=== PATIENT | female | born 1940 | race Caucasian/White ===

== ENCOUNTER → 2017-10-29 11:12 | Outpatient (CLI) | payer MEDICARE, BC, SELFPAY ==
--- NOTE | 2017-10-29 | DI.MG.S_ITS ---
BILATERAL DIGITAL SCREENING MAMMOGRAM 3D/2D WITH CAD: 10/29/2017 CLINICAL: Routine screening. Family history of breast cancer. Comparison is made to exams dated: 10/24/2016 mammogram, 10/13/2016 mammogram, and 10/03/2016 mammogram - [facility]. The tissue of both breasts is predominantly fatty. Current study was also evaluated with a Computer Aided Detection (CAD) system. There is a 1.1 cm oval low density mass with a macrolobulated margin in the right breast at 10 o'clock anterior depth. This is increased in size. No other significant masses, calcifications, or other findings are seen in either breast. IMPRESSION: INCOMPLETE: NEEDS ADDITIONAL IMAGING EVALUATION The 1.1 cm oval low density mass in the right breast is indeterminate. Mediolateral and spot compression views as well as additional views with possible ultrasound are recommended. This exam was interpreted at Station ID: [id number]. NOTE: For mammograms, a report in lay terms will be sent to the patient. Approximately 15% of breast malignancies will not be visualized mammographically. In the management of a palpable breast mass, a negative mammogram must not discourage biopsy of a clinically suspicious lesion. Electronically Signed By: James driver/delmi:10/29/2017 16:33:51 letter sent: Additional Imaging Needed ACR BI-RADS Category 0: Incomplete 3340F
== END ==
PROVIDERS: PCP Family Medicine; Visit Provider Family Medicine
DX: Z12.31 Encounter for screening mammogram for malignant neoplasm of breast (principal); Z80.3 Family history of malignant neoplasm of breast
CPT/HCPCS: 77063; 77067

== ENCOUNTER → 2017-11-14 14:25 | Outpatient (CLI) | payer MEDICARE, BC, SELFPAY ==
--- NOTE | 2017-11-14 | DI.MG.S_ITS ---
UNILATERAL RIGHT DIGITAL DIAGNOSTIC MAMMOGRAM 3D/2D WITH ADDITIONAL VIEWS: 11/14/2017 CLINICAL: Additional evaluation requested from prior study. Comparison is made to exams dated: 10/29/2017 mammogram, 10/24/2016 mammogram, and 10/13/2016 mammogram - [facility]. The tissue of the right breast is predominantly fatty. There is a 1.1 cm oval low density mass with a macrolobulated margin in the right breast at 10 o'clock anterior depth. This is seen in additional views. No other significant masses or calcifications are seen in the breast. IMPRESSION: INCOMPLETE: NEEDS ADDITIONAL IMAGING EVALUATION The 1.1 cm oval low density mass in the right breast is indeterminate. An ultrasound is recommended. This exam was interpreted at Station ID: [id number]. NOTE: For mammograms, a report in lay terms will be sent to the patient. Approximately 15% of breast malignancies will not be visualized mammographically. In the management of a palpable breast mass, a negative mammogram must not discourage biopsy of a clinically suspicious lesion. Electronically Signed By: Bridget Alcala M.D. lk/:11/14/2017 15:17:01 letter sent: Additional Imaging Needed ACR BI-RADS Category 0: Incomplete 3340F
--- NOTE | 2017-11-14 | DI.US.S_ITS ---
ULTRASOUND OF RIGHT BREAST: 11/14/2017 CLINICAL: Patient returns for additional imaging over a suspected mass in the right breast. Comparison is made to exams dated: 11/14/2017 mammogram, 10/29/2017 mammogram, 10/13/2016 ultrasound, and 10/13/2016 mammogram - [facility]. Color flow ultrasound of the right breast was performed on the areas of interest. Holloway scale images of the real-time examination were reviewed. There is a 1.2 cm x 0.5 cm x 0.5 cm irregular mass in the right breast at 10 o'clock anterior depth. This irregular mass is hypoechoic. There is an associated biopsy clip. IMPRESSION: PROBABLY BENIGN - FOLLOW-UP RECOMMENDED The 1.2 cm x 0.5 cm x 0.5 cm irregular mass in the right breast is at the site of a previous benign biopsy. This finding most likely represents a foreign body reaction to the biopsy clip placed in this location. However, as a precautionary measure, a followup mammogram and ultrasound in 6 months are recommended to demonstrate stability. This exam was interpreted at Station ID: [id number]. Electronically Signed By: Bridget nick/:11/14/2017 16:58:37 letter sent: Followup Recommended Ultrasound BI-RADS: 3 Probably benign
== END ==
PROVIDERS: PCP Family Medicine; Visit Provider Family Medicine
DX: R92.8 Other abnormal and inconclusive findings on diagnostic imaging of breast (principal); N63.11 Unspecified lump in the right breast, upper outer quadrant
CPT/HCPCS: 76642; 77065; G0279

== ENCOUNTER → 2018-05-30 13:02 | Outpatient (CLI) | payer MEDICARE, BC, SELFPAY ==
--- NOTE | 2018-05-30 | DI.US.S_ITS ---
LIMITED ULTRASOUND OF RIGHT BREAST: 05/30/2018 CLINICAL: 6 month follow-up on previously biopsied area of the right breast (benign). Comparison is made to exams dated: 05/30/2018 mammogram, 11/14/2017 ultrasound, 11/14/2017 mammogram, 10/29/2017 mammogram, 10/24/2016 mammogram, and 10/24/2016 ultrasound biopsy - [facility]. Ultrasound of the right breast upper outer quadrant was performed. There is a benign 0.7 cm x 0.3 cm x 0.5 cm wider than tall oval mass in the right breast at 10 o'clock middle depth with the long axis parallel to the skin. This abnormality is decreased in size. There is an associated biopsy clip. Color flow imaging demonstrates that there is no increase in vascularity. IMPRESSION: BENIGN There is no sonographic evidence of malignancy. The 0.7 cm x 0.3 cm x 0.5 cm wider than tall oval mass in the right breast is benign. Return to annual mammogram screening schedule is recommended. This exam was interpreted at Station ID: [id number]. Electronically Signed By: Suzi veronica/delmi:05/31/2018 01:51:08 letter sent: Normal Exam Ultrasound BI-RADS: 2 Benign
--- NOTE | 2018-05-30 | DI.MG.S_ITS ---
UNILATERAL RIGHT DIGITAL DIAGNOSTIC MAMMOGRAM 3D/2D SHORT-TERM FOLLOW-UP: 05/30/2018 CLINICAL: Right breast mass Patient returns for a 6 month follow up of the right breast. Post biopsy. Comparison is made to exams dated: 11/14/2017 ultrasound, 11/14/2017 mammogram, and 10/29/2017 mammogram - [facility]. The tissue of right breast is predominantly fatty. There is a 1 cm irregular, lobulated mass in the right breast at 10 o'clock anterior depth. This is not significantly changed. There is a biopsy clip associated with the mass. No other significant masses or calcifications are seen in the breast. IMPRESSION: INCOMPLETE: NEEDS ADDITIONAL IMAGING EVALUATION The 1 cm irregular right breast mass, at the site of previous benign biopsy, is stable by mammogram. An ultrasound is recommended to confirm sonographic stability which was performed immediately following this study. This exam was interpreted at Station ID: [id number]. NOTE: For mammograms, a report in lay terms will be sent to the patient. Approximately 15% of breast malignancies will not be visualized mammographically. In the management of a palpable breast mass, a negative mammogram must not discourage biopsy of a clinically suspicious lesion. Electronically Signed By: Suzi veronica/:05/31/2018 01:44:19 ACR BI-RADS Category 0: Incomplete 3340F
== END ==
PROVIDERS: PCP Family Medicine; Visit Provider Family Medicine
DX: R92.8 Other abnormal and inconclusive findings on diagnostic imaging of breast (principal); N63.11 Unspecified lump in the right breast, upper outer quadrant
CPT/HCPCS: 76642; 77065; G0279

== ENCOUNTER → 2019-06-04 14:37 | Outpatient (CLI) | payer MEDICARE, BC, SELFPAY ==
--- NOTE | 2019-06-04 | DI.MG.S_ITS ---
BILATERAL DIGITAL SCREENING MAMMOGRAM 3D/2D WITH CAD: 06/04/2019 CLINICAL: Routine screening. Family history of breast cancer. Comparison is made to exams dated: 10/29/2017 mammogram, 10/03/2016 mammogram, and 09/21/2015 mammogram - [facility]. The tissue of both breasts is predominantly fatty. Current study was also evaluated with a Computer Aided Detection (CAD) system. No significant masses, calcifications, or other findings are seen in either breast. There has been no significant interval change. IMPRESSION: NEGATIVE There is no mammographic evidence of malignancy. A 1 year screening mammogram is recommended. This exam was interpreted at Station ID: [id number]. NOTE: For mammograms, a report in lay terms will be sent to the patient. Approximately 15% of breast malignancies will not be visualized mammographically. In the management of a palpable breast mass, a negative mammogram must not discourage biopsy of a clinically suspicious lesion. Electronically Signed By: Bridget nick/delmi:06/04/2019 15:39:49 letter sent: Normal Exam ACR BI-RADS Category 1: Negative 3341F
== END ==
PROVIDERS: PCP Family Medicine; Referring Provider Family Medicine; Visit Provider Family Medicine
DX: Z12.31 Encounter for screening mammogram for malignant neoplasm of breast (principal); Z80.3 Family history of malignant neoplasm of breast
CPT/HCPCS: 77063; 77067

== ENCOUNTER → 2020-11-25 15:18 | Outpatient (CLI) | payer MEDICARE, SELFPAY ==
--- NOTE | 2020-11-25 15:22 | DI.MG.S_ITS ---
BILATERAL DIGITAL SCREENING MAMMOGRAM 3D/2D WITH CAD: 11/25/2020 CLINICAL: Routine screening. Family history of breast cancer. Comparison is made to exams dated: 06/04/2019 mammogram, 05/30/2018 mammogram, 11/14/2017 mammogram, and 10/29/2017 mammogram - [facility]. The tissue of both breasts is predominantly fatty. Current study was also evaluated with a Computer Aided Detection (CAD) system. No significant masses, calcifications, or other findings are seen in either breast. There has been no significant interval change. IMPRESSION: NEGATIVE There is no mammographic evidence of malignancy. A 1 year screening mammogram is recommended. This exam was interpreted at Station ID: [id number]. NOTE: For mammograms, a report in lay terms will be sent to the patient. Approximately 15% of breast malignancies will not be visualized mammographically. In the management of a palpable breast mass, a negative mammogram must not discourage biopsy of a clinically suspicious lesion. Electronically Signed By: Aakash Merchant M.D., jr/delmi:11/25/2020 15:38:25 letter sent: Normal Exam ACR BI-RADS Category 1: Negative 3341F
== END ==
PROVIDERS: PCP Family Medicine; Referring Provider Family Medicine; Visit Provider Family Medicine
DX: Z12.31 Encounter for screening mammogram for malignant neoplasm of breast (principal); Z80.3 Family history of malignant neoplasm of breast
CPT/HCPCS: 77063; 77067

== ENCOUNTER 2021-06-14 09:31 | Emergency (ER) | payer MEDICARE, SELFPAY ==
[2021-06-14 09:35] VITALS: BP 175/80; PULSE 85; RESP 13; TEMP 36.4; O2SAT 98; BMI 25.4
[2021-06-14 09:37] VITALS: PULSE 91; O2SAT 98
[2021-06-14 09:39] VITALS: BP 175/80; PULSE 84; O2SAT 99
--- NOTE | 2021-06-14 09:42 | DI.RAD.S_ITS ---
PROCEDURE: XR KNEE LT 3V INDICATIONS: fall with knee pain TECHNIQUE: 3 views of the knee were acquired. COMPARISON: [facility], , KNEE 3V LEFT, 09/19/2006, 14:40. FINDINGS: Bones: No fractures or dislocations. No suspicious bony lesions. Mild joint space narrowing Soft tissues: Moderate joint effusion. No suspicious soft tissue calcifications. IMPRESSION: Moderate joint effusion without fracture or dislocation Approved by: Stephon Flores M.D. on 06/14/2021 at 9:31
--- NOTE | 2021-06-14 10:44 | ED.FALL ---
HPI - Fall General Chief Complaint: Fall Stated Complaint: Fall,knee and hand pain Time Seen by Provider: 06/14/21 10:35 Source: patient Mode of arrival: Wheelchair History of Present Illness HPI Narrative: Patient is a 80-year-old female who presents with left knee pain. She says that she was bringing supplies to a friend when her rubber shoe got stuck in the elevator and she fell forward. She caught herself with both wrists she did not hit her head she has no shortness of breath. She no wrist pain only knee pain. She was able to walk on it but it was really tender. She took some arinca for pain and is now feeling better. She was able to drive herself here. Related Data Allergies Allergy/AdvReac Type Severity Reaction Status Date / Time tetanus toxoid, adsorbed Allergy Mild Verified 06/14/21 09:39 aspirin AdvReac Unknown Verified 06/14/21 09:39 Review of Systems Review of Systems Narrative: GENERAL: Denies chills,fever HEENT: Denies throat pain RESPIRATORY: Denies dyspnea, cough, wheezing CARDIOVASCULAR: Denies chest pain, palpitations GASTROINTESTINAL: Denies nausea, vomiting MUSCULOSKELETAL: See HPI SKIN: No rash, no laceration, no pruritus NEUROLOGIC: Denies weakness, dizziness, headache, numbness 8 point review of systems is negative except for those stated above and HPI Patient History Surgical History History of cataract removal with insertion of prosthetic lens Status post hysterectomy Social History Smoking Status: Unknown if ever smoked Smoking Status: Unknown if ever smoked alcohol intake frequency: holidays/special occasions only Substance Use Type: does not use Exam Initial Vital Signs Initial Vital Signs: Vital Signs Temperature 97.6 F 06/14/21 09:35 Pulse Rate 85 06/14/21 09:35 Respiratory Rate 13 06/14/21 09:35 Blood Pressure 175/80 H 06/14/21 09:35 Pulse Oximetry 98 06/14/21 09:35 GENERAL: Well-appearing, well-nourished and in no acute distress. CARDIOVASCULAR: peripheral pulses in tact, cap refill <2 sec RESPIRATORY: No respiratory distress, speaks in full sentences without difficulty EXTREMITIES: Normal range of motion, no clubbing or edema. Neurovascularly intact Left lower extremity mild knee swelling able to flex and extend no erythema no hip pain with internal external rotation distal pedal pulse intact. NEUROLOGICAL: Cranial nerves II through XII grossly intact. Normal gait and speech. SKIN: Warm, dry, no petechiae, no rashes or lesions. Course Orders Ordered: ED Orders 06/14/21 09:42 XR knee LT 3V Stat Vital Signs Vital signs: Vital Signs - 8 hr 06/14/21 11:12 06/14/21 11:13 Pulse Rate 68 71 Blood Pressure 159/69 H Pulse Oximetry 97 99 [facility] - Fall Imaging Data Extremity x-ray #1: Radiologist's Impression: PROCEDURE:? XR KNEE LT 3V ? INDICATIONS:? fall with knee pain ? TECHNIQUE:? 3 views of the knee were acquired.? ? COMPARISON:? [facility], , KNEE 3V LEFT, 09/19/2006, 14:40. ? FINDINGS:? ? Bones:? No fractures or dislocations.? No suspicious bony lesions.? Mild joint space narrowing ? Soft tissues:? Moderate joint effusion.? No suspicious soft tissue calcifications.? ? ? IMPRESSION:? Moderate joint effusion without fracture or dislocation ? ? ? Approved by: Stephon Flores M.D. on 06/14/2021 at 9:31? [facility] Narrative Medical decision making narrative: At this time patient x-ray is negative she does have some mild edema. Able to flex and extend with good distal pulse. Discharge Plan Departure Patient Disposition: Home Clinical Impression: Left knee sprain Instructions: DI for Knee Sprain Activity Restrictions/Additional Instructions: *You have been diagnosed with left knee sprain *What to do: Elevate and ice 20-30 minutes at a time. Recommend wearing some sort of knee brace well active. If still having pain and swelling in 7-10 days may require repeat x-ray or possible outpatient MRI *Continue to take medications as directed Tylenol 650 mg every 4-6 hours if needed for [id number] pain *Follow up with your primary care provider in 2-3 days or call [phone] *Return to ER if you should have increasing pain swelling inability to ambulate or any new, worsening or concerning symptoms Referrals: Arun Aguilar MD [Primary Care Provider] -
[2021-06-14 11:12] VITALS: PULSE 68; O2SAT 97
[2021-06-14 11:13] VITALS: BP 159/69; PULSE 71; O2SAT 99
--- NOTE | 2021-06-14 11:16 | PC.NURSE ---
Knee immobilizer placed on leg lower extremity, patient educated on use/wear of immobilizer.
== END 2021-06-14 11:27 | disposition home or self-care (01) ==
PROVIDERS: Emergency Provider Emergency Medicine; PCP Family Medicine
DX: S83.92XA Sprain of unspecified site of left knee, initial encounter (principal); W01.0XXA Fall on same level from slipping, tripping and stumbling without subsequent striking against object, initial encounter
CPT/HCPCS: 73562; 99283

== ENCOUNTER → 2021-12-06 12:45 | Outpatient (CLI) | payer MEDICARE, SELFPAY ==
--- NOTE | 2021-12-06 | DI.MG.S_ITS ---
BILATERAL DIGITAL SCREENING MAMMOGRAM 3D/2D WITH CAD: 12/06/2021 CLINICAL: Routine screening. Family history of breast cancer. Comparison is made to exams dated: 11/25/2020 mammogram, 06/04/2019 mammogram, and 10/29/2017 mammogram - [facility]. Both breasts are almost entirely fatty (category a/<25% glandular tissue). Current study was also evaluated with a Computer Aided Detection (CAD) system. There are benign calcifications in both breasts. No significant masses, calcifications, or other findings are seen in either breast. There has been no significant interval change. IMPRESSION: BENIGN There is no mammographic evidence of malignancy. A 1 year screening mammogram is recommended. Based on the Tyrer Cuzick model (a risk assessment model) the patient's lifetime risk is 0.7% and her 10 year risk is 0.0%. According to the ACR, ACS, and NCCN guidelines, an annual breast MRI exam along with mammogram is recommended if the patient's lifetime risk is 20% or greater. This exam was interpreted at Station ID: [id number]. NOTE: For mammograms, a report in lay terms will be sent to the patient. Approximately 15% of breast malignancies will not be visualized mammographically. In the management of a palpable breast mass, a negative mammogram must not discourage biopsy of a clinically suspicious lesion. Electronically Signed By: Suzi veronica/delmi:12/06/2021 15:50:09 letter sent: Normal Exam ACR BI-RADS Category 2: Benign Finding(s) 3342F
== END ==
PROVIDERS: PCP Family Medicine; Referring Provider Family Medicine; Visit Provider Family Medicine
DX: Z12.31 Encounter for screening mammogram for malignant neoplasm of breast (principal); Z80.3 Family history of malignant neoplasm of breast
CPT/HCPCS: 77063; 77067

== ENCOUNTER → 2022-04-21 14:06 | Outpatient (CLI) | payer MEDICARE, SELFPAY ==
[2022-04-21 15:52] LABS: Free T4, Direct Thyroxine 1.35 ng/dL (0.78-2.19)
[2022-04-21 16:05] LABS: Thyroid Stimulating Hormone 2.19 uIU/mL (0.47-4.68)
== END ==
PROVIDERS: PCP Family Medicine; Referring Provider Family Medicine; Visit Provider Family Medicine
DX: E03.9 Hypothyroidism, unspecified (principal)
CPT/HCPCS: 36415; 84439; 84443; 84481

== ENCOUNTER → 2022-11-21 09:33 | Outpatient (CLI) | payer MEDICARE, SELFPAY ==
[2022-11-21 10:20] LABS: Add Manual Diff / Slide Review NO; Basophils Absolute Auto 100 /uL (0-100); Basophils Percent Auto 2.4 % (0-2); Eosinophils Absolute Auto 400 /uL (0-450); Hematocrit 39.5 % (36-46); Hemoglobin 13.3 g/dL (12.0-16.0); Lymphocytes Absolute Auto 1700 /uL (1100-4500); Lymphocytes Percent Auto 28.2 % (25-40); Mean Corpuscular HGB Conc 33.8 % (30-36); Mean Corpuscular Hemoglobin 31.3 PG (26-34); Mean Corpuscular Volume 92.6 fL (80-100); Monocytes Absolute Auto 700 /uL (0-900); Monocytes Percent Auto 11.7 % (3-14); Neutrophils Absolute Auto 3000 /uL (1500-7000); Neutrophils Percent Auto 51.7 % (50-75); Platelet Count 230 X10^3/uL (150-400); Red Blood Cell Count 4.26 X10^6/uL (4.0-5.2); White Blood Cell Count 5.9 X10^3/uL (4.5-11.0)
[2022-11-21 10:35] LABS: Alanine Aminotransferase 20 IU/L (<35); Albumin 4.1 g/dL (3.5-5.0); Albumin Globulin Ratio 1.4 (1.0-2.8); Alkaline Phosphatase 63 U/L (38-126); Aspartate Aminotransferase 25 IU/L (14-36); BUN Creatinine Ratio 24.6 (6-22); Bilirubin Total 0.6 mg/dL (0.2-1.3); Blood Urea Nitrogen 28 mg/dL (7-17); Calcium 9.1 mg/dL (8.4-10.2); Carbon Dioxide 26 mmol/L (22-32); Chloride 105 mmol/L (98-107); Cholesterol 193 mg/dL (140-199); Estimated Glomerular Filt Rate 48 mL/min (>60); Glucose 96 mg/dL (80-110); HDL Cholesterol 32 mg/dL (40-60); HEMOLYSIS < 15 (0-50); LDL Cholesterol Calculated 118 mg/dL (<100); Potassium 4.6 mmol/L (3.4-5.1); Sodium 137 mmol/L (137-145); Total Protein 7.1 g/dL (6.3-8.2); Triglycerides 214 mg/dL (35-150)
[2022-11-21 11:16] LABS: TSH w/ Reflex to FT4 1.95 uIU/mL (0.47-4.68)
== END ==
PROVIDERS: PCP Family Medicine; Referring Provider Family Medicine; Visit Provider Family Medicine
DX: Z00.00 Encounter for general adult medical examination without abnormal findings (principal); E03.9 Hypothyroidism, unspecified; E78.2 Mixed hyperlipidemia
CPT/HCPCS: 36415; 80053; 80061; 84443; 85025

== ENCOUNTER → 2022-12-12 10:42 | Outpatient (CLI) | payer MEDICARE, SELFPAY ==
[2022-12-12 12:18] LABS: Alanine Aminotransferase 22 IU/L (<35); Albumin 4.4 g/dL (3.5-5.0); Albumin Globulin Ratio 1.6 (1.0-2.8); Alkaline Phosphatase 58 U/L (38-126); Aspartate Aminotransferase 26 IU/L (14-36); BUN Creatinine Ratio 23.8 (6-22); Bilirubin Total 0.6 mg/dL (0.2-1.3); Blood Urea Nitrogen 29 mg/dL (7-17); Calcium 9.2 mg/dL (8.4-10.2); Carbon Dioxide 26 mmol/L (22-32); Chloride 103 mmol/L (98-107); Estimated Glomerular Filt Rate 44 mL/min (>60); Globulin 2.7 g/dL (1.7-4.1); Glucose 85 mg/dL (80-110); HEMOLYSIS < 15 (0-50); Potassium 4.3 mmol/L (3.4-5.1); Sodium 138 mmol/L (137-145); Total Protein 7.1 g/dL (6.3-8.2)
== END ==
PROVIDERS: PCP Family Medicine; Referring Provider Family Medicine; Visit Provider Family Medicine
DX: E03.9 Hypothyroidism, unspecified (principal); E78.5 Hyperlipidemia, unspecified
CPT/HCPCS: 36415; 80053

== ENCOUNTER 2023-08-13 13:31 | Emergency (ER) | payer MEDICARE, SELFPAY ==
[2023-08-13] VITALS (15 sets, daily range): BP systolic 147–184; BP diastolic 67–93; PULSE 54–73; RESP 14–27; TEMP 37; O2SAT 96–100; BMI 25.4
--- NOTE | 2023-08-13 14:02 | ED.CHESTPAIN ---
HPI - Chest Pain General Chief Complaint: Chest Pain Stated Complaint: Chest Pains, sent by [facility] Time Seen by Provider: 08/13/23 14:02 Source: patient Mode of arrival: Ambulatory Limitations: no limitations History of Present Illness HPI narrative: 82-year-old woman with a history of hypothyroidism, distant history of cervical cancer, asthma presents with 4 days of intermittent chest pain she describes as glass grinding in the middle of her chest with deep breathing. She returned from [place] on July 29 with complaints of mild upper respiratory symptoms at that time. Cough has resolved. When she has the episodes of chest pain she does not report dizziness, diaphoresis or dyspnea. She has had no lower extremity edema. She has no prior cardiac history. Related Data Home Medications Medication Instructions Recorded Confirmed ascorbic acid (vitamin C) 1,000 mg 1 g PO DAILY 11/02/22 11/02/22 capsule cranberry extract 650 mg capsule 650 mg PO DAILY 11/02/22 11/02/22 (Theracran) grape seed extract 50 mg capsule 50 mg PO ONCE 11/02/22 11/02/22 magnesium 200 mg tablet 400 mg PO DAILY 11/02/22 11/02/22 omega-3 fatty acids 500 mg capsule 1,000 mg PO DAILY 11/02/22 11/02/22 red yeast rice 600 mg capsule 1,800 mg PO DAILY 11/02/22 11/02/22 vitamin B complex 1 cap PO DAILY 11/02/22 11/02/22 vitamin E (dl, acetate) 180 mg 180 mg PO 3XW 11/02/22 11/02/22 (400 unit) capsule vitamin k PO DAILY 11/02/22 Previous Rx's Medication Instructions Recorded levothyroxine 75 mcg tablet 75 mcg PO DAILY #90 tabs 04/10/23 Allergies Allergy/AdvReac Type Severity Reaction Status Date / Time tetanus toxoid, adsorbed Allergy Mild Verified 11/02/22 14:34 psyllium Allergy Unknown Verified 08/13/23 14:11 aspirin AdvReac Unknown Verified 11/02/22 14:34 MSG Allergy Unknown Swollen Uncoded 08/13/23 14:11 glands Review of Systems Review of Systems Narrative: Pertinent positive and negative findings as per HPI Patient History Medical History Asthma (~1945) Allergies (~1945) Fractures (~1985) Measles (~1945) Chicken pox (~1946) Herpes (~1984) Abnormal Pap smear of cervix (~2006) Hypothyroidism (~1951) Surgical History Anesthesia History of tubal ligation (~1975) History of tonsillectomy and adenoidectomy (~1950) Status post hysterectomy History of cataract removal with insertion of prosthetic lens Family History Father History of heart disease Mother Dementia Grandfather History of heart disease Grandmother Hypertension Grandfather History of heart disease Grandmother Cancer Social History Smoking Status: Former smoker Smoking Status: Former smoker alcohol intake frequency: holidays/special occasions only Substance Use Type: does not use Exam Initial Vital Signs Initial Vital Signs: Vital Signs Temperature 98.6 F 08/13/23 13:47 Pulse Rate 68 08/13/23 13:47 Respiratory Rate 18 08/13/23 13:47 Blood Pressure 147/70 H 08/13/23 13:47 Pulse Oximetry 98 08/13/23 13:47 Oxygen Delivery Method Room Air 08/13/23 13:47 General: Healthy appearing, in no acute distress. Able to give a complete and coherent history. Well-nourished well-developed HEENT: Moist mucous membranes, normal sclera with reactive pupils, Neck: No JVD, supple Respiratory: Lungs are clear to auscultation, no wheezing no rales no rhonchi. Full and symmetrical air movement Cardiac: Regular rate and rhythm no murmurs no bruits Abdomen: Soft, nontender, good bowel tones, no flank pain Skin: Warm and dry, no rashes Neurologic: Grossly neurologically intact with no obvious asymmetries or abnormalities Extremities: No trauma, well perfused Psych: Cooperative, appropriate insight and affect Course Orders Ordered: ED Orders 08/13/23 13:57 EKG-12 Lead Stat 08/13/23 13:58 Complete Blood Count AUTO DIFF Stat Comprehensive Metabolic Panel Stat D Dimer Stat Lipase Stat Magnesium Stat NT-proBNP (BNP-Adult 18+) Stat PTT Partial Thromboplastin Roman Stat Prothrombin Time INR Stat Troponin & CK Cardiac Panel Stat 08/13/23 14:00 Respiratory Panel (Film Array) Stat 08/13/23 14:06 XR chest 1V Stat EKG-12 Lead Stat 08/13/23 16:39 Urinalysis and Microscopic Stat Sodium Chloride (Normal Saline 0.9%) 1,000 mls @ 150 mls/hr IV CONT KRISTIE Last Admin: 08/13/23 14:25 Dose: 150 mls/hr Documented By: STACIE Heparin Sodium/Dextrose (Heparin Drip) 25,000 unit in 500 mls @ 14.696 mls/hr IV CONT KRISTIE; Protocol Last Admin: 08/13/23 15:25 Dose: 12 units/kg/hr, 14.696 mls/hr Documented By: LAN Co-signed By: GEORGIANA Discontinued Medications Clopidogrel Bisulfate (Clopidogrel 75 Mg Tablet) 150 mg PO NOW ONE Stop: 08/13/23 14:13 Last Admin: 08/13/23 14:20 Dose: 150 mg Documented By: STACIE Heparin Sodium (Porcine) (Heparin 5,000 Unit/Ml Vial) 3,500 unit 60 unit/kg (3500 unit) IV NOW ONE Stop: 08/13/23 14:07 Last Admin: 08/13/23 14:21 Dose: 3,500 unit Documented By: STACIE Vital Signs Vital signs: Vital Signs - 8 hr 08/13/23 13:47 08/13/23 14:05 08/13/23 14:07 Temperature 98.6 F Pulse Rate 68 63 Respiratory Rate 18 15 Blood Pressure 147/70 H 184/83 H Pulse Oximetry 98 Oxygen Delivery Method Room Air 08/13/23 14:07 08/13/23 14:30 08/13/23 14:31 Temperature Pulse Rate 61 73 Respiratory Rate 17 27 H Blood Pressure 179/79 H Pulse Oximetry 98 Oxygen Delivery Method 08/13/23 14:31 08/13/23 15:00 08/13/23 15:30 Temperature Pulse Rate 73 62 55 L Respiratory Rate 22 15 22 Blood Pressure Pulse Oximetry 97 97 99 Oxygen Delivery Method Room Air Room Air 08/13/23 15:31 08/13/23 15:31 08/13/23 16:00 Temperature Pulse Rate 64 56 L Respiratory Rate 17 16 Blood Pressure 175/93 H Pulse Oximetry 99 99 Oxygen Delivery Method Room Air Room Air 08/13/23 16:01 08/13/23 16:01 08/13/23 16:37 Temperature Pulse Rate 55 L 55 L Respiratory Rate 22 Blood Pressure 175/82 H Pulse Oximetry 100 96 Oxygen Delivery Method Room Air Room Air 08/13/23 16:38 08/13/23 16:38 Temperature Pulse Rate 56 L Respiratory Rate 16 Blood Pressure 172/75 H Pulse Oximetry 99 Oxygen Delivery Method Room Air MDM - Chest Pain Lab Data 08/13/23 13:58 08/13/23 13:58 Labs: Lab Results 08/13/23 08/13/23 08/13/23 Range/Units 13:58 14:00 16:39 WBC 13.8 H (4.5-11.0) X10^3/uL RBC 4.34 (4.0-5.2) X10^6/uL Hgb 13.5 (12.0-16.0) g/dL Hct 40.7 (36-46) % MCV 93.7 (80-100) fL MCH 31.2 (26-34) PG MCHC 33.2 (30-36) % RDW 13.1 (11.6-14.8) % Plt Count 339 (150-400) X10^3/uL Neut % (Auto) 76.5 H (50-75) % Lymph % (Auto) 11.9 L (25-40) % Davison % (Auto) 11.0 (3-14) % Eos % (Auto) 0.3 L (2-4) % Baso % (Auto) 0.3 (0-2) % Neut # (Auto) 79261 H (3691-9437) /uL Lymph # (Auto) 1600 (4771-8112) /uL Davison # (Auto) 1500 H (0-900) /uL Eos # (Auto) 0 (0-450) /uL Baso # (Auto) 0 (0-100) /uL PT 10.8 (9.4-12.5) SECONDS INR 0.9 (0.9-1.3) APTT 26 (25.1-36.5) SECONDS D-Dimer 499 (<500) ng/ml Sodium 130 L (137-145) mmol/L Potassium 4.5 (3.4-5.1) mmol/L Chloride 100 (98-107) mmol/L Carbon Dioxide 24 (22-32) mmol/L BUN 16 (7-17) mg/dL Creatinine 0.96 (0.52-1.04) mg/dL Estimated GFR 59 L (>60) mL/min BUN/Creatinine Ratio 16.7 (6-22) Glucose 98 (80-110) mg/dL Calcium 9.4 (8.4-10.2) mg/dL Magnesium 2.1 (1.6-2.3) mg/dL Total Bilirubin 0.9 (0.2-1.3) mg/dL AST 274 H (14-36) IU/L ALT 45 H (<35) IU/L Alkaline Phosphatase 69 (38-126) U/L Total Creatine Kinase 1470 H (30-135) U/L Troponin I 25.800 H* (0.01-0.034) ng/mL NT-Pro-B Natriuret Pep 3830 H (<450) pg/mL Total Protein 7.8 (6.3-8.2) g/dL Albumin 4.6 (3.5-5.0) g/dL Globulin 3.2 (1.7-4.1) g/dL Albumin/Globulin Ratio 1.4 (1.0-2.8) Lipase 143 (23-300) U/L Urine Color Yellow Urine Appearance Sl cloudy Urine pH 7.0 (4.5-8.0) Ur Specific [place] 1.015 (1.000-1.035) Urine Protein Negative (Negative) Urine Glucose (UA) Negative (Negative) g/dL Urine Ketones 1+ H (NEGATIVE) Urine Occult Blood Negative (Negative) Urine Nitrate Negative (Negative) Urine Bilirubin Negative (NEGATIVE) Urine Urobilinogen 0.2 (0.2) E.U./dL Ur Leukocyte Esterase Negative (NEGATIVE) Urine RBC None seen (0-5/HPF) Urine WBC 1-5/hpf (0-5/HPF) Ur Squamous Epith Cells None seen (0-5/HPF) Ur Transition Epith Cell 0-1/hpf (0-5/HPF) Urine Bacteria Occasional (0-1) (None) Ur Culture Indicated? Cult not indicated Vol Urine Centrifuged 10ml (spun) Chlamy pneumoniae PCR Not detected (Not Detect) Adenovirus (PCR) Not detected (Not Detect) B.parapertussis DNA PCR Not detected (Not Detecte) Coronavirus OC43 (PCR) Not detected (Not Detect) Coronavirus HKU1 (PCR) Not detected (Not Detect) Coronavirus 229E (PCR) Not detected (Not Detect) SARS-CoV-2 (PCR) Detected H (Not Detecte) Coronavirus NL63 (PCR) Not detected (Not Detect) Human Metapneumovir PCR Not detected (Not Detect) Influenza Type A (PCR) Not detected (Not Detect) Influenza Type B (PCR) Not detected (Not Detect) M. pneumoniae (PCR) Not detected (Not Detect) Parainfluenza 1 (PCR) Not detected (Not Detect) Parainfluenza 2 (PCR) Not detected (Not Detect) Parainfluenza 3 (PCR) Not detected (Not Detect) Parainfluenza 4 (PCR) Not detected (Not Detect) RSV (PCR) Not detected (Not Detect) Entero/Rhino (PCR) Not detected (Not Detect) MDM Narrative Medical decision making narrative: CC: Intermittent chest pain for the last 4-5 days Complicating co-morbidities: Hypothyroidism, returned from [place] on July 29 Data collected from: patient Medical records reviewed: Primary care notes from October of 2022 are reviewed Differential considered: STEMI, ACS, resolving STEMI with the initial event a couple of days ago, congestive heart failure, viral syndrome Exam documented above, pertinent findings include: At this point patient is completely pain-free and exam is will Lab Test results independently reviewed as above. Pertinent findings: Troponin is significantly elevated at to 25.800 (upper limits of undetectable are 0.034) Mildly elevated BNP at 3830 Slight bump 2 AST and ALT at 274 and 45 respectively Renal function is appropriate CBC is unremarkable Patient is testing positive for COVID. She describes upper respiratory symptoms shortly after returning from [place] on 07/29. Has not felt ill for a number of days Independently reviewed EK EKG is significantly abnormal, she has ST elevations inferiorly with reciprocal changes laterally. She does have small Q-waves appreciated with the inferior ST elevation Imaging studies independently reviewed: Chest x-ray does not show significant cardiomegaly nor dramatic volume overload Consultations: 211 care is reviewed with Dr. Mario, on-call authors motivational. Agrees that this certainly looks like an obstructive pattern. In the absence of pain recommends waiting for initial troponin to return. Patient states she is allergic to aspirin so 150 mg of Plavix along with heparin is started 228 EKGs reviewed with parachute officer, Dr. Edmonds. In the absence of any immediate pain emergent intervention is not indicated. We will continue with the remainder of workup and anticipate need for transfer in a timely manner 345pm Discussed with Dr Barron, hospitalist at [facility]. Transfer center discussed with Dr Rowley, cardiology who agreed with transfer, recommended the patient be admitted to the hospitalist service and he will consult when patient arrives to [facility]. Patient will be going to [address] [place] [address] with bed available shortly, will transfer via ALS transport when bed is actually available [address] Fuller, cardiology. He is electronically transmitted a copy of her EKG, care is reviewed. Question is which team to most appropriately care for this woman on arrival to [facility] [address] dr olson will be accepting doctor Treatments: Plavix(patient is allergic to aspirin) Heparin Re-evaluations: Bed is available, patient is updated Discussion: 82-year-old woman with chest pain intermittently for the last 4-5 days. Very likely had her primary event 4 days ago with an inferior STEMI. Is now showing dramatically elevated troponin, persistent ST elevation with Q-waves developing inferiorly. Patient is completely pain-free and not showing signs or symptoms of congestive heart failure. She states she is allergic to aspirin shows she was given Plavix, is currently on a heparin drip, understands the need for transfer and the likelihood of catheterization for further evaluation of her coronary vessels. Critical Care Time Critical Care Time Critical Care Time: Yes Total Critical Care Time: 33 Attestation: Critical care time is separate from other billable procedures. There is a high probability of a significant, sudden or life-threatening deterioration that requires my full and direct attention, intervention and personal management. This critical care time includes consultation with family and other consulting doctors, review of records, and interpretation of data from labs, EKGs and imaging as well as managements of evolving STEMI, coordination with multiple hospitals and different hospitalist and authors motivational. Discharge Plan Departure Patient Disposition: [facility] Clinical Impression: COVID ST elevation (STEMI) myocardial infarction Qualifiers: Involved coronary artery: unspecified coronary artery Qualified Code(s): I21.3 - ST elevation (STEMI) myocardial infarction of unspecified site Heart failure Qualifiers: Heart failure type: unspecified Heart failure chronicity: acute Qualified Code(s): I50.9 - Heart failure, unspecified Prescriptions: No Action levothyroxine 75 mcg tablet 75 mcg PO DAILY Qty: 90 3RF omega-3 fatty acids 500 mg capsule 1,000 mg PO DAILY ascorbic acid (vitamin C) 1,000 mg capsule 1 g PO DAILY red yeast rice 600 mg capsule 1,800 mg PO DAILY Rx Instructions: give with meal/snack vitamin E (dl, acetate) 180 mg (400 unit) capsule 180 mg PO 3XW magnesium 200 mg tablet 400 mg PO DAILY vitamin k PO DAILY grape seed extract 50 mg capsule 50 mg PO ONCE Rx Instructions: give with food (meal/snack) Theracran 650 mg capsule 650 mg PO DAILY Rx Instructions: administer with a meal vitamin B complex Capsule 1 cap PO DAILY Referrals: Cal Tyler MD [Primary Care Provider] -
--- NOTE | 2023-08-13 14:06 | DI.RAD.S_ITS ---
PROCEDURE: XR CHEST 1V INDICATIONS: chest pain TECHNIQUE: One view of the chest was acquired. COMPARISON: None. FINDINGS: Surgical changes and devices: None. Lungs and pleura: Nipple shadow versus nodule in the right lower lung zone measuring 1.6 cm. Clear chest otherwise. Mediastinum: Mediastinal contours appear normal. Heart size is normal. Bones and chest wall: No suspicious bony lesions. Overlying soft tissues appear unremarkable. IMPRESSION: No acute cardiopulmonary abnormality is seen. 1.6 cm nodule versus prominent nipple shadow on the right. Recommend confirmation with low-dose chest CT in the outpatient setting. Dictated by: Ford Shelby M.D. on 08/13/2023 at 14:49 Approved by: Ford Shelby M.D. on 08/13/2023 at 14:50
--- NOTE | 2023-08-13 14:06 | PC.NURSE ---
1358 STEMI identified on EKG. Dr. hankins aware. Patient roomed and Dr. hankins at bedside assessing patient. Patient refuses aspirin due to allergy. Doling off on giving aspirin at this time per verbal order from Dr. hankins.
[2023-08-13 14:09] LABS: Add Manual Diff / Slide Review NO; Basophils Absolute Auto 0 /uL (0-100); Basophils Percent Auto 0.3 % (0-2); Eosinophils Absolute Auto 0 /uL (0-450); Eosinophils Percent Auto 0.3 % (2-4); Hematocrit 40.7 % (36-46); Hemoglobin 13.5 g/dL (12.0-16.0); Lymphocytes Absolute Auto 1600 /uL (1100-4500); Lymphocytes Percent Auto 11.9 % (25-40); Mean Corpuscular HGB Conc 33.2 % (30-36); Mean Corpuscular Hemoglobin 31.2 PG (26-34); Mean Corpuscular Volume 93.7 fL (80-100); Monocytes Absolute Auto 1500 /uL (0-900); Neutrophils Absolute Auto 10600 /uL (1500-7000); Neutrophils Percent Auto 76.5 % (50-75); Platelet Count 339 X10^3/uL (150-400); Red Blood Cell Count 4.34 X10^6/uL (4.0-5.2); Red Cell Distribution Width 13.1 % (11.6-14.8); White Blood Cell Count 13.8 X10^3/uL (4.5-11.0)
[2023-08-13 14:18] LABS: INR 0.9 (0.9-1.3); Prothrombin Time 10.8 SECONDS (9.4-12.5)
[2023-08-13] MEDS: CLOPIDOGREL 75 MG TABLET 150 MG PO (14:20)
[2023-08-13 14:21] LABS: PTT Partial Thromboplastin Tim 26 SECONDS (25.1-36.5)
[2023-08-13] MEDS: HEPARIN 5,000 UNIT/ML VIAL 3500 UNIT IV (14:21)
[2023-08-13 14:22] LABS: Alanine Aminotransferase 45 IU/L (<35); Albumin 4.6 g/dL (3.5-5.0); Albumin Globulin Ratio 1.4 (1.0-2.8); Alkaline Phosphatase 69 U/L (38-126); Aspartate Aminotransferase 274 IU/L (14-36); BUN Creatinine Ratio 16.7 (6-22); Bilirubin Total 0.9 mg/dL (0.2-1.3); Blood Urea Nitrogen 16 mg/dL (7-17); Calcium 9.4 mg/dL (8.4-10.2); Carbon Dioxide 24 mmol/L (22-32); Chloride 100 mmol/L (98-107); Creatine Kinase 1470 U/L (30-135); Estimated Glomerular Filt Rate 59 mL/min (>60); Globulin 3.2 g/dL (1.7-4.1); Glucose 98 mg/dL (80-110); HEMOLYSIS 19 (0-50); Lipase 143 U/L (23-300); Magnesium 2.1 mg/dL (1.6-2.3); Potassium 4.5 mmol/L (3.4-5.1); Sodium 130 mmol/L (137-145); Total Protein 7.8 g/dL (6.3-8.2)
[2023-08-13] MEDS: SODIUM CHLORIDE 0.9% 1,000 ML 150 ML IV (14:25)
[2023-08-13 14:31] LABS: D Dimer 499 ng/ml (<500)
[2023-08-13 14:43] LABS: NT-proBNP (BNP-Adult 18+) 3830 pg/mL (<450)
[2023-08-13 15:14] LABS: Adenovirus Not Detected (Not Detect); B. parapertussis Not Detected (Not Detecte); Bordetella pertussis Not Detected (Not Detect); Chlamydophila pneumoniae Not Detected (Not Detect); Coronavirus 229E Not Detected (Not Detect); Coronavirus HKU1 Not Detected (Not Detect); Coronavirus NL 63 Not Detected (Not Detect); Coronavirus OC43 Not Detected (Not Detect); Human Metapneumovirus Not Detected (Not Detect); Human Rhinovirus/Enterovirus Not Detected (Not Detect); Influenza A Not Detected (Not Detect); Influenza B Not Detected (Not Detect); Mycoplasma pneumoniae Not Detected (Not Detect); Parainfluenza Virus 1 Not Detected (Not Detect); Parainfluenza Virus 2 Not Detected (Not Detect); Parainfluenza Virus 3 Not Detected (Not Detect); Parainfluenza Virus 4 Not Detected (Not Detect); Respiratory Syncytial Virus Not Detected (Not Detect)
[2023-08-13] MEDS: HEPARIN DRIP 25,000 UNIT/500 ML IV.SOLN 14.696 UNIT IV (15:25)
[2023-08-13 15:31] LABS: SARS- CoV-2 Detected (Not Detecte)
[2023-08-13 16:57] LABS: Appearance Urine UA SL CLOUDY; Bilirubin Urine UA NEGATIVE (NEGATIVE); Color Urine UA YELLOW; Glucose Urine UA NEGATIVE (Negative); Ketones Urine UA 1+ (NEGATIVE); Leukocyte Esterase Urine UA NEGATIVE (NEGATIVE); Nitrite Urine UA NEGATIVE (Negative); Occult Blood Urine UA NEGATIVE (Negative); Protein Urine UA NEGATIVE (Negative); Specific Gravity Urine UA 1.015 (1.000-1.035); Urobilinogen Urine UA 0.2 E.U./dL (0.2)
[2023-08-13 16:58] LABS: Urine Volume 10mL (spun)
[2023-08-13 16:59] LABS: Bacteria Urine Occasional (0-1); RBC Urine None Seen (0-5/HPF); Squamous Epithelial Cell Urine None Seen (0-5/HPF); Transitional Epi Cells Urine 0-1/HPF (0-5/HPF); WBC Urine 1-5/HPF (0-5/HPF)
[2023-08-13 17:00] LABS: Culture Indicated Urine Cult Not Indicated
--- NOTE | 2023-08-13 18:34 | PC.NURSE ---
1800 Patient's heparin continued upon transfer to with [facility].
== END 2023-08-13 18:01 | disposition short-term general hospital (02) ==
PROVIDERS: Emergency Provider Emergency Medicine; PCP Family Medicine
DX: I21.3 ST elevation (STEMI) myocardial infarction of unspecified site (principal); U07.1 COVID-19; I50.9 Heart failure, unspecified
CPT/HCPCS: 36415; 71045; 80053; 81001; 82550; 83690; 83735; 83880; 84484; 85025; 85379; 85610; 85730; 87633; 93005; 96365; 96366; 96375; 99284; 99291; J1644

== ENCOUNTER → 2023-10-09 09:43 | Outpatient (CLI) | payer MEDICARE, SELFPAY ==
[2023-10-09 10:37] LABS: Add Manual Diff / Slide Review NO; Basophils Absolute Auto 100 /uL (0-100); Basophils Percent Auto 1.3 % (0-2); Eosinophils Absolute Auto 300 /uL (0-450); Eosinophils Percent Auto 5.7 % (2-4); Hematocrit 35.1 % (36-46); Hemoglobin 11.8 g/dL (12.0-16.0); Lymphocytes Absolute Auto 1100 /uL (1100-4500); Lymphocytes Percent Auto 19.4 % (25-40); Mean Corpuscular HGB Conc 33.5 % (30-36); Mean Corpuscular Hemoglobin 31.5 PG (26-34); Mean Corpuscular Volume 93.8 fL (80-100); Monocytes Absolute Auto 800 /uL (0-900); Monocytes Percent Auto 13.4 % (3-14); Neutrophils Absolute Auto 3500 /uL (1500-7000); Neutrophils Percent Auto 60.2 % (50-75); Platelet Count 262 X10^3/uL (150-400); Red Blood Cell Count 3.74 X10^6/uL (4.0-5.2); Red Cell Distribution Width 13.6 % (11.6-14.8); White Blood Cell Count 5.8 X10^3/uL (4.5-11.0)
[2023-10-09 10:51] LABS: Hemoglobin A1C% w Est Avg Glu 5.5 % (4.0-6.0)
[2023-10-09 11:06] LABS: Alanine Aminotransferase 62 IU/L (<35); Albumin Globulin Ratio 1.5 (1.0-2.8); Alkaline Phosphatase 58 U/L (38-126); Aspartate Aminotransferase 52 IU/L (14-36); BUN Creatinine Ratio 18.1 (6-22); Bilirubin Total 0.6 mg/dL (0.2-1.3); Blood Urea Nitrogen 27 mg/dL (7-17); Calcium 9.4 mg/dL (8.4-10.2); Carbon Dioxide 24 mmol/L (22-32); Chloride 110 mmol/L (98-107); Cholesterol 128 mg/dL (140-199); Estimated Glomerular Filt Rate 35 mL/min (>60); Globulin 2.6 g/dL (1.7-4.1); Glucose 97 mg/dL (80-110); HDL Cholesterol 33 mg/dL (40-60); HEMOLYSIS < 15 (0-50); LDL Cholesterol Calculated 55 mg/dL (<100); Potassium 4.4 mmol/L (3.4-5.1); Sodium 138 mmol/L (137-145); Total Protein 6.6 g/dL (6.3-8.2); Triglycerides 199 mg/dL (35-150)
[2023-10-09 11:37] LABS: TSH w/ Reflex to FT4 0.08 uIU/mL (0.47-4.68)
[2023-10-09 12:03] LABS: Free T4, Direct Thyroxine 1.75 ng/dL (0.78-2.19)
[2023-10-09 14:36] LABS: Creatinine Urine Random 102.51 mg/dL
[2023-10-09 14:43] LABS: Microalbumin Urine Random 17.7 mg/dL (0-1.6)
[2023-10-10 04:12] LABS: Apolipoprotein B 82 mg/dL (<90)
[2023-10-10 15:07] LABS: Vitamin D 25 Hydroxy (D3) 34.3 ng/mL (30.0-100.0)
== END ==
PROVIDERS: PCP Family Medicine; Referring Provider Family Medicine; Visit Provider Family Medicine
DX: E03.9 Hypothyroidism, unspecified (principal); E78.5 Hyperlipidemia, unspecified; J45.909 Unspecified asthma, uncomplicated; I25.10 Atherosclerotic heart disease of native coronary artery without angina pectoris; Z95.5 Presence of coronary angioplasty implant and graft
CPT/HCPCS: 36415; 80053; 80061; 82043; 82172; 82306; 82570; 83036; 84439; 84443; 85025

== ENCOUNTER → 2023-11-23 08:39 | Outpatient (CLI) | payer MEDICARE, SELFPAY ==
[2023-11-23 09:14] LABS: Add Manual Diff / Slide Review NO; Basophils Absolute Auto 100 /uL (0-100); Basophils Percent Auto 1.2 % (0-2); Eosinophils Absolute Auto 400 /uL (0-450); Eosinophils Percent Auto 5.8 % (2-4); Hematocrit 34.1 % (36-46); Hemoglobin 11.3 g/dL (12.0-16.0); Lymphocytes Absolute Auto 1600 /uL (1100-4500); Mean Corpuscular HGB Conc 33.3 % (30-36); Mean Corpuscular Hemoglobin 31.3 PG (26-34); Mean Corpuscular Volume 94.1 fL (80-100); Monocytes Absolute Auto 900 /uL (0-900); Monocytes Percent Auto 14.1 % (3-14); Neutrophils Absolute Auto 3500 /uL (1500-7000); Neutrophils Percent Auto 53.9 % (50-75); Platelet Count 259 X10^3/uL (150-400); Red Blood Cell Count 3.62 X10^6/uL (4.0-5.2); Red Cell Distribution Width 13.3 % (11.6-14.8); White Blood Cell Count 6.5 X10^3/uL (4.5-11.0)
[2023-11-23 09:39] LABS: Alanine Aminotransferase 30 IU/L (<35); Albumin 3.9 g/dL (3.5-5.0); Albumin Globulin Ratio 1.6 (1.0-2.8); Alkaline Phosphatase 57 U/L (38-126); Aspartate Aminotransferase 35 IU/L (14-36); BUN Creatinine Ratio 24.4 (6-22); Bilirubin Total 0.5 mg/dL (0.2-1.3); Blood Urea Nitrogen 32 mg/dL (7-17); Calcium 9.2 mg/dL (8.4-10.2); Carbon Dioxide 22 mmol/L (22-32); Chloride 109 mmol/L (98-107); Cholesterol 118 mg/dL (140-199); Estimated Glomerular Filt Rate 40 mL/min (>60); Globulin 2.4 g/dL (1.7-4.1); Glucose 97 mg/dL (80-110); HDL Cholesterol 34 mg/dL (40-60); HEMOLYSIS < 15 (0-50); LDL Cholesterol Calculated 56 mg/dL (<100); Potassium 4.6 mmol/L (3.4-5.1); Sodium 139 mmol/L (137-145); Total Protein 6.3 g/dL (6.3-8.2); Triglycerides 138 mg/dL (35-150)
[2023-11-23 10:04] LABS: TSH w/ Reflex to FT4 0.09 uIU/mL (0.47-4.68)
[2023-11-23 10:38] LABS: Free T4, Direct Thyroxine 1.46 ng/dL (0.78-2.19)
== END ==
PROVIDERS: PCP Family Medicine; Referring Provider Family Medicine; Visit Provider Family Medicine
DX: E03.9 Hypothyroidism, unspecified (principal); R94.4 Abnormal results of kidney function studies; I25.10 Atherosclerotic heart disease of native coronary artery without angina pectoris
CPT/HCPCS: 36415; 80053; 80061; 84439; 84443; 85025

== ENCOUNTER → 2024-03-04 11:36 | Outpatient (CLI) | payer MEDICARE, SELFPAY ==
[2024-03-04 13:14] LABS: Add Manual Diff / Slide Review NO; Basophils Absolute Auto 100 /uL (0-100); Basophils Percent Auto 1.1 % (0-2); Eosinophils Absolute Auto 300 /uL (0-450); Eosinophils Percent Auto 4.3 % (2-4); Hematocrit 35.1 % (36-46); Hemoglobin 11.6 g/dL (12.0-16.0); Lymphocytes Absolute Auto 1500 /uL (1100-4500); Lymphocytes Percent Auto 25.2 % (25-40); Mean Corpuscular HGB Conc 33.1 % (30-36); Mean Corpuscular Hemoglobin 29.6 PG (26-34); Mean Corpuscular Volume 89.5 fL (80-100); Monocytes Absolute Auto 700 /uL (0-900); Monocytes Percent Auto 11.5 % (3-14); Neutrophils Absolute Auto 3500 /uL (1500-7000); Neutrophils Percent Auto 57.9 % (50-75); Platelet Count 258 X10^3/uL (150-400); Red Blood Cell Count 3.92 X10^6/uL (4.0-5.2); Red Cell Distribution Width 14.3 % (11.6-14.8); White Blood Cell Count 6.1 X10^3/uL (4.5-11.0)
[2024-03-04 13:33] LABS: HEMOLYSIS < 15 (0-50); Iron 69 ug/dL (37-170)
[2024-03-04 13:44] LABS: Percent Iron Saturation 20 % (15-50); Total Iron Binding Capacity 340 ug/dL (265-497); Transferrin 296 mg/dL (206-381)
[2024-03-04 14:08] LABS: Ferritin 34 ng/mL (11-264)
== END ==
PROVIDERS: PCP Family Medicine; Referring Provider Family Medicine; Visit Provider Family Medicine
DX: I25.10 Atherosclerotic heart disease of native coronary artery without angina pectoris (principal); Z95.2 Presence of prosthetic heart valve; E03.9 Hypothyroidism, unspecified; E78.2 Mixed hyperlipidemia; Z95.5 Presence of coronary angioplasty implant and graft
CPT/HCPCS: 36415; 82728; 83540; 83550; 85025

== ENCOUNTER → 2024-03-18 09:50 | Outpatient (CLI) | payer MEDICARE, SELFPAY ==
[2024-03-19 19:10] LABS: Fecal Immunochemical Test Negative (Negative)
== END ==
LOC: LAB 09:50
PROVIDERS: PCP Family Medicine; Referring Provider Family Medicine; Visit Provider Family Medicine
DX: D64.9 Anemia, unspecified (principal)
CPT/HCPCS: 82274

== ENCOUNTER → 2024-06-19 07:52 | Outpatient (CLI) | payer MEDICARE, SELFPAY ==
[2024-06-19 08:54] LABS: Cholesterol 120 mg/dL (140-199); HDL Cholesterol 37 mg/dL (40-60); LDL Cholesterol Calculated 50 mg/dL (<100); Triglycerides 163 mg/dL (35-150)
[2024-06-19 09:08] LABS: Free T3, Triiodothyronine Free 3.97 pg/mL (2.77-5.27); Free T4, Direct Thyroxine 1.53 ng/dL (0.78-2.19)
[2024-06-19 09:22] LABS: Thyroid Stimulating Hormone 0.015 uIU/mL (0.47-4.68)
== END ==
PROVIDERS: PCP Family Medicine; Referring Provider Family Medicine; Visit Provider Family Medicine
DX: I25.10 Atherosclerotic heart disease of native coronary artery without angina pectoris (principal); E03.9 Hypothyroidism, unspecified; E78.5 Hyperlipidemia, unspecified
CPT/HCPCS: 36415; 80061; 84439; 84443; 84481

== ENCOUNTER → 2024-08-21 10:46 | Outpatient (CLI) | payer MEDICARE, SELFPAY ==
[2024-08-21 11:54] LABS: Thyroid Stimulating Hormone 1.83 uIU/mL (0.47-4.68)
== END ==
PROVIDERS: PCP Family Medicine; Referring Provider Family Medicine; Visit Provider Family Medicine
DX: R79.89 Other specified abnormal findings of blood chemistry (principal)
CPT/HCPCS: 36415; 84439; 84443

== ENCOUNTER → 2024-11-18 08:16 | Outpatient (CLI) | payer MEDICARE, SELFPAY ==
[2024-11-18 08:56] LABS: Add Manual Diff / Slide Review NO; Hematocrit 38.5 % (36-46); Hemoglobin 12.6 g/dL (12.0-16.0); Lymphocytes Absolute Auto 1500 /uL (1100-4500); Mean Corpuscular HGB Conc 32.8 % (30-36); Mean Corpuscular Hemoglobin 29.7 PG (26-34); Mean Corpuscular Volume 90.7 fL (80-100); Platelet Count 208 X10^3/uL (150-400)
[2024-11-18 10:04] LABS: TSH w/ Reflex to FT4 2.63 uIU/mL (0.47-4.68)
[2024-11-18 10:05] LABS: Alanine Aminotransferase 27 IU/L (<35); Albumin 3.9 g/dL (3.5-5.0); Albumin Globulin Ratio 1.6 (1.0-2.8); Alkaline Phosphatase 56 U/L (38-126); Blood Urea Nitrogen 27 mg/dL (7-17); Calcium 9.3 mg/dL (8.4-10.2); Carbon Dioxide 27 mmol/L (22-32); Chloride 106 mmol/L (98-107); Cholesterol 115 mg/dL (140-199); Estimated Glomerular Filt Rate 46 mL/min (>60); Globulin 2.5 g/dL (1.7-4.1); Glucose 94 mg/dL (70-99); HDL Cholesterol 37 mg/dL (40-60); HEMOLYSIS < 15 (0-50); Potassium 4.8 mmol/L (3.4-5.1); Sodium 139 mmol/L (137-145); Total Protein 6.4 g/dL (6.3-8.2); Triglycerides 144 mg/dL (35-150)
== END ==
PROVIDERS: PCP Family Medicine; Referring Provider Family Medicine; Visit Provider Family Medicine
DX: E03.9 Hypothyroidism, unspecified (principal); E78.5 Hyperlipidemia, unspecified; I25.10 Atherosclerotic heart disease of native coronary artery without angina pectoris; C53.9 Malignant neoplasm of cervix uteri, unspecified
CPT/HCPCS: 36415; 80053; 80061; 84443; 85025